=== PATIENT | male | born 1950 | race Caucasian/White ===

== ENCOUNTER 2024-07-09 15:54 | Emergency (ER) | payer OTHER, MEDICARE ==
[~2024-07-09] VITALS: Ht 177.8 cm; Wt 80.7 kg
[2024-07-09] MEDS ORDERED: Roxicodone5 MG PO (17:02)
== END 2024-07-09 17:35 | disposition home or self-care (01) ==
LOC: ER 15:54
DX: S49.91XA Unspecified injury of right shoulder and upper arm, initial encounter (principal); W01.0XXA Fall on same level from slipping, tripping and stumbling without subsequent striking against object, initial encounter; Z88.1 Allergy status to other antibiotic agents
CPT/HCPCS: 73030; 99283-25

== ENCOUNTER 2024-11-26 17:07 | Observation (INO) | payer OTHER, MEDICARE ==
[~2024-11-26] VITALS: Ht 182.9 cm; Wt 81.6 kg
[~2024-11-26 17:07] MED LIST: BRILINTA90 M7 PO; CELE100 PO; DUTASTERIDE0.5 M3 PO; ESCITALOPRAM OXALATE; GEMTESA75 MG PO; IMBRUVICA420 MG PO; LIPITOR80 MG PO; LISINOPRIL2.5 MG PO; METOPROLOL SUCC25 MG PO; NORTRIPTYLINE H2512 PO; OXYC5; PREG25 PO; Roxicodone5 MG PO; SPIRONOLACTONE25 MG PO; TAMSULOSIN HCL0.4 M1 PO
[2024-11-26] MEDS ORDERED: PREG200 PO (18:12)
[2024-11-26] MEDS ORDERED: Ketorolac Tromethamine 15mg Vial IV ONE (19:10)
[2024-11-26] MEDS ORDERED: OxyCODONE 10/Acetamin 325 TABLET PO ONE (19:10)
[2024-11-26] MEDS ORDERED: Morphine Sulfate 4 MG/1 ML Injection IV ONE (20:45)
[2024-11-26] MEDS ORDERED: OxyCODONE 5 mg/Acetamin 325 mg TABLET PO PRN (21:25)
[2024-11-26] MEDS ORDERED: Ondansetron HCl 2 MG / ML 2ML Vial IV PRN (21:30)
[2024-11-26] MEDS ORDERED: Albuterol 2.5 MG/3 ML VIAL INH PRN (21:30)
[2024-11-26] MEDS ORDERED: Ketorolac Tromethamine 15mg Vial IV PRN (21:30)
[2024-11-26] MEDS ORDERED: FLU VACC TS2025(65UP)/MF59C/PF 45 MCG/0.5 ML SYRINGE IM SCH (21:30)
[2024-11-26 22:45] VITALS: BP 151/84
[2024-11-26 23:07] LABS: BASOPHILS ABSOLUTE AUTO 0.05 K/mm3 (0.00-0.23); BASOPHILS PERCENT AUTO 1 % (0-2); EOSINOPHILS ABSOLUTE AUTO 0.09 K/mm3 (0.00-0.68); EOSINOPHILS PERCENT AUTO 1 % (0-6); Hematocrit 41.8 % (37.0-53.0); Hemoglobin 13.8 g/dL (13.5-17.5); IMMATURE GRAN ABSOLUTE AUTO 0.01 K/mm3 (0.00-0.10); IMMATURE GRAN PERCENT AUTO 0 % (0-1); LYMPHOCYTES ABSOLUTE AUTO 1.26 K/mm3 (0.84-5.20); LYMPHOCYTES PERCENT AUTO 14 % (21-46); MONOCYTES ABSOLUTE AUTO 1.45 K/mm3 (0.16-1.47); MONOCYTES PERCENT AUTO 16 % (4-13); Mean Corpuscular HGB Conc 33.0 g/dL (31.5-36.5); Mean Corpuscular Volume 94 fL (80-100); NEUTROPHILS ABSOLUTE AUTO 6.47 K/mm3 (1.96-9.15); NEUTROPHILS PERCENT AUTO 69 % (41-73); NRBC ABSOLUTE 0.00 K/mm3 (0.00-0.02); NRBC Auto 0.0 /100 WBC (0.0-0.2); Platelet Count 112 K/mm3 (150-400); RDW Coefficient Variation 14.4 % (11.7-14.2); RDW Standard Deviation 49.9 fL (35.1-46.3)
[2024-11-26 23:31] LABS: Anion Gap 7.0 mmol/L (3-11); Blood Urea Nitrogen 17.0 mg/dL (8-24); CO2, Blood 30.0 mmol/L (21-32); Calcium, Blood 8.7 mg/dL (8.5-10.1); Chloride, Blood 106.0 mmol/L (98-108); Creatinine, Blood 1.18 mg/dL (0.60-1.20); Glucose, Blood 100.0 mg/dL (70-99); Potassium, Blood 4.1 mmol/L (3.5-5.5); Sodium, Blood 139.0 mmol/L (136-145)
[2024-11-27 04:32] VITALS: BP 116/73
--- NOTE | 2024-11-27 05:26 | NUR ---
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 PT ADMITTED FOR R RIB FRACTURES. PAIN MANAGED WITH PO MEDS, SEE MAY. PT HAS BEEN ON 1-2L OF O2 THROUGH THE NIGHT PT DESATTED TO HIGH 80'S IN THE ED AFTER PAIN MEDS. PT TOOK SHOWER SHORTLY AFTER ARRVING TO THE UNIT AND DID WELL MANAGING THAT BY HIMSELF. AAOX4 AND INDEPENDENT IN ROOM. JOSE, ROMARIO.
[2024-11-27 07:35] VITALS: BP 128/57
[2024-11-27] MEDS ORDERED: Enoxaparin 40 MG/0.4 ML SYR SC SCH (09:00)
[2024-11-27] MEDS ORDERED: DOC250 PO (10:16)
[2024-11-27] MEDS ORDERED: OXYC10ER PO (10:18)
[2024-11-27 11:11] VITALS: BP 174/78
--- NOTE | 2024-11-27 11:15 | NUR ---
BP 174/[address] SHEPHERD[address] LEXI TO ÓSCAR W/INSTRUCTIONS TO ESTABLISH PCP AND FOLLOW UP.
--- NOTE | 2024-11-27 11:34 | NUR ---
DISCHARGED REVIEWED DC INSTRUCTIONS W/PT; VERBALIZED UNDERSTANDING. FAXED [facility] SCRIPT TO [employer] PER PT REQUEST. PT LEFT UNIT IN WC W/POSSESSIONS AND DC PAPERWORK IN HAND TO RIDE OUTSIDE. PT'S METER REPAIRER HELPER DELIVERED TO SECURITY.
== END 2024-11-27 11:26 | disposition home or self-care (01) ==
LOC: ER 17:07 → SURS 17:08 → MEDS 17:08 → SURS 21:45
PROVIDERS: Nurse Practitioner Acute Care; ADMIT Student in an Organized Health Care Education/Training Program
DX: S22.41XA Multiple fractures of ribs, right side, initial encounter for closed fracture (principal); R09.02 Hypoxemia; N40.0 Benign prostatic hyperplasia without lower urinary tract symptoms; I10 Essential (primary) hypertension; E78.5 Hyperlipidemia, unspecified; C91.10 Chronic lymphocytic leukemia of B-cell type not having achieved remission; I25.10 Atherosclerotic heart disease of native coronary artery without angina pectoris; I25.2 Old myocardial infarction; J43.9 Emphysema, unspecified; J40 Bronchitis, not specified as acute or chronic; J98.11 Atelectasis; Z85.72 Personal history of non-Hodgkin lymphomas; Z79.899 Other long term (current) drug therapy; Z88.1 Allergy status to other antibiotic agents; Z96.82 Presence of neurostimulator; V28.49XA Other motorcycle driver injured in noncollision transport accident in traffic accident, initial encounter
CPT/HCPCS: 36415; 70450; 71250; 72125; 80048; 85025; 96374; 96375; 96376; 99284-25; A9270; G0378; J1885; J2270

== ENCOUNTER 2024-12-04 13:16 | Emergency (ER) | payer MEDICARE ==
[~2024-12-04] VITALS: Ht 177.8 cm; Wt 72.6 kg
[~2024-12-04 13:16] MED LIST changes: +DOC250 PO; +OXYC10ER PO; +PREG200 PO
[2024-12-04] MEDS ORDERED: OXAYDO5 M1 PO (17:30)
== END 2024-12-04 17:34 | disposition home or self-care (01) ==
LOC: ER 13:16
DX: S22.41XA Multiple fractures of ribs, right side, initial encounter for closed fracture (principal); S46.011A Strain of muscle(s) and tendon(s) of the rotator cuff of right shoulder, initial encounter; I10 Essential (primary) hypertension; V29.99XA Rider (driver) (passenger) of other motorcycle injured in unspecified traffic accident, initial encounter; Z79.899 Other long term (current) drug therapy; Z88.1 Allergy status to other antibiotic agents; Z88.5 Allergy status to narcotic agent
CPT/HCPCS: 99283